=== PATIENT | female | born 1955 | race Hispanic/Latino ===

== ENCOUNTER → 2017-09-02 | Day surgery (SDC) | payer OTHER ==
[2017-08-31 10:07] LABS: ANION GAP 16.2 mmol/L (8-16); BLOOD UREA NITROGEN 17 mg/dL (7-26); BUN/CREATININE RATIO 20 (6-25); CALCIUM 9.8 mg/dL (8.4-10.2); CARBON DIOXIDE 25 mmol/L (22-29); CHLORIDE 101 mmol/L (98-107); CREATININE, SERUM 0.85 mg/dL (0.57-1.11); EST GLOMERULAR FILTRATION RATE > 60 ML/MIN (60-); GLUCOSE 153 mg/dL (74-118); POTASSIUM 4.2 mmol/L (3.5-5.1); SODIUM 138 mmol/L (136-145)
[~2017-09-02] MED LIST: ACETAMINOPHEN325 M1 PO; BUPIVACAINE 0.5%/EPI 30 ML SDV INJ ONE; CALCIUM600 M1; CEFAZOLIN SOD 2 GM/D5W 50ML 50 ML IV ONE; CRESTOR10 MG PO; DEXAMETHASONE SOD PHOS INJ 4 MG/ML VIAL ONE; FENTANYL CITRATE/PF 100MCG/2 ML INJ ONE; INVOKANA PO; JANUVIA100 MG PO; LIDOCAINE HCL 2% LOCAL INJ 5 ML SDV VIAL INJ ONE; MIDAZOLAM HCL 2 MG/2 ML VIAL ONE; ONDANSETRON HCL INJ 2 MG/ML VIAL ONE; PANTOPRAZOLE SO40 MG PO; PROPOFOL IV EMULSION 10 MG/ML 20 ML VIAL ONE; SEVOFLURANE INHAL SOLN 250 ML PEN BTL ONE; TYLENOL COLD &1 EACH PO; Z BIOTIN PO; Z.0.LIPITOR10 MG PO; Z.0.MELOXICAM15 MG PO; Z.0.MULTIVITAMINS1 E; Z.0.SERTRALINE HCL25 PO; Z.0.VITAMIN D3 1,01 PO; Z.2.METFORMIN HCL500 PO
--- OUTSIDE RECORDS SUMMARY | 2017-09-02 07:05 | XMS REPORT | Clinical Summary ---
Author Author [facility] Organization [facility] Address Unknown Phone Unavailable Care Team Providers Care Lamination Builder Name Role Phone Asked, Pcp PCP Unavailable Allergies Active Allergy Reactions Severity Noted Date Comments Codeine GI Intolerance 01/20/2017 nausea Current Medications Prescription Sig. Disp. Refills Start End Date Status Date INVOKANA 100 mg tablet Apply 100 mg to the mouth 01/06/20 Active tablet or throat daily. 17 MINIVELLE 0.075 mg/[address] 0.075 mg on the 01/01/20 Active skin once a week. 17 fluticasone (FLONASE) 50 50 sprays by Each Nare 12/09/19 Active mcg/actuation nasal spray route daily. 17 metFORMIN XR Take 500 mg by mouth 2 12/13/19 Active (GLUCOPHAGE-XR) 500 mg 24 (two) times a day. 17 hr tablet pantoprazole (PROTONIX) Take 40 mg by mouth 12/28/19 Active 40 MG EC tablet daily. 17 rosuvastatin (CRESTOR) 10 Take 10 mg by mouth 11/18/19 Active MG tablet nightly. 17 sertraline (ZOLOFT) 50 MG Take 12.5 mg by mouth 12/08/19 Active tablet nightly. 17 JANUVIA 100 mg tablet Take 100 mg by mouth 01/04/20 Active daily. 17 sucralfate (CARAFATE) 1 Take 1 g by mouth 2 (two) 12/09/19 Active gram tablet times a day. 17 INCRUSE ELLIPTA 62.5 62.5 mcg into each 12/28/19 Active mcg/actuation blister nostril daily. 17 with device Active Problems Not on file Encounters Date Type Specialty Care Team Description 01/20/2017 Lab Lab Srinath Grey MD 01/20/2017 Hospital Pulmonology Srinath Grey MD Encounter 01/20/2017 Procedure Pass Pulmonology 01/20/2017 Surgery Pulmonology Srinath Grey MD BRONCHOSCOPY WITH BAL after 09/01/2016 Social History Tobacco Use Types Packs/Day Years Used Date Never Smoker Alcohol Use Drinks/Week oz/Week Comments Yes ocasionally Sex Assigned at Date Recorded Not on file Last Filed Vital Signs Vital Sign Reading Time Taken Blood Pressure 131/65 01/20/2017 10:00 AM CDT Pulse 64 01/20/2017 10:00 AM CDT Temperature 36.1 C (97 F) 01/20/2017 9:08 AM CDT Respiratory Rate 16 01/20/2017 9:08 AM CDT Oxygen Saturation 99% 01/20/2017 10:00 AM CDT Inhaled Oxygen - - Concentration Weight 82.4 kg (181 lb 9.6 oz) 01/20/2017 7:32 AM CDT Height 162.6 cm (5' 4") 01/20/2017 7:32 AM CDT Body Mass Index 31.17 01/20/2017 7:32 AM CDT Plan of Treatment Health Maintenance Due Date Last Done Comments PAP SMEAR 10/03/1976 COLONOSCOPY 10/03/2005 MAMMOGRAM 10/03/2005 ZOSTER VACCINE 2015 INFLUENZA VACCINE 01/13/2017 Procedures Procedure Name Priority Date/Time Associated Diagnosis Comments BRONCHOSCOPY WITH BAL 01/20/2017 Cough 8:00 AM CDT after 09/01/2016 Results * Cytology (non-gynecological) request (01/20/2017 11:23 AM) Component Value Ref Range Cytology See link below for PDF Lab Report (non-gynecological) report Specimen Performing Laboratory [facility] DEPARTMENT OF PATHOLOGY AND GENOMIC MEDICINE [address] [place] [id number] * BAL cell count and differential (01/20/2017 10:49 AM) Component Value Ref Range BAL specimen source RML BAL BAL cell count 0.005 m/mL Comment: Normal ranges: Nonsmokers: 0.007 - 0.363 Smokers: 0 - 1.31 BAL PAMS SEE COMMENT % Comment: Normal ranges: Nonsmokers: 65 - 100 Smokers: 81 - 100 Footnote--------- Unable to perform manual differential. Due to low cell count. Specimen Performing Laboratory Fluid [facility] DEPARTMENT OF PATHOLOGY AND GENOMIC MEDICINE [address] [place] [id number] * Respiratory culture (01/20/2017 8:46 AM) Only the most recent of 2 results within the time period is included. Component Value Ref Range Respiratory culture Normal oral jessica isolated. isolate Comment: Specimen Information Specimen Source: Bronchial Washing Specimen Site: RML (Right Middle Lobe) Specimen Performing Laboratory Bronchial washing - L [facility] DEPARTMENT OF PATHOLOGY AND GENOMIC MEDICINE (right middle lobe) [address] [place] [id number] * Fungus smear (01/20/2017 8:46 AM) Component Value Ref Range Fungus smear No fungi observed. Comment: Specimen Information Specimen Source: Bronchial alveolar lavage Specimen Site: RML (right middle lobe) Specimen Performing Laboratory Bronchial alveolar lavage [facility] DEPARTMENT OF PATHOLOGY AND [facility] - L (right middle lobe) [address] [place] [phone] * Respiratory pathogen panel (01/20/2017 8:46 AM) Component Value Ref Range Respiratory pathogen Negative for all pathogens tested: panel Negative for Adenovirus Negative for Coronavirus HKU1 Negative for Coronavirus NL63 Negative for Coronavirus 229E Negative for Coronavirus OC43 Negative for Human Metapneumovirus Negative for Rhinovirus/Enterovirus Negative for Influenza A Negative for Influenza A/H1 Negative for Influenza A/H3 Negative for Influenza A/H1-2009 Negative for Influenza B Negative for Parainfluenza Virus 1 Negative for Parainfluenza Virus 2 Negative for Parainfluenza Virus 3 Negative for Parainfluenza Virus 4 Negative for Respiratory Syncytial Virus Negative for Bordetella pertussis Negative for Chlamydophila pneumoniae Negative for Mycoplasma pneumoniae This real-time PCR assay detects the presence of nucleic acids (RNA or DNA) for the respiratory pathogens listed. A result of "Not-detected" does not exclude the possibility of the presence of one or more pathogens at concentrations less than the detectable limits of the assay. Comment: Specimen Information Specimen Source: Bronchial alveolar lavage Specimen Site: RML (right middle lobe) Specimen Performing Laboratory Bronchial alveolar lavage [facility] DEPARTMENT OF PATHOLOGY AND GENOMIC MEDICINE - L (right middle lobe) [address] [place] [id number] * AFB culture (01/20/2017 8:46 AM) Component Value Ref Range AFB culture isolate No growth after 6 weeks of incubation. Comment: Specimen Information Specimen Source: Bronchial alveolar lavage Specimen Site: RML (right middle lobe) Specimen Performing Laboratory Bronchial alveolar lavage [facility] DEPARTMENT OF PATHOLOGY AND GENOMIC MEDICINE - L (right middle lobe) [address] [place] [address] * Gram stain (01/20/2017 8:46 AM) Only the most recent of 2 results within the time period is included. Component Value Ref Range Gram stain isolate Many WBC's Few Gram positive cocci in pairs Comment: Specimen Information Specimen Source: Bronchial Washing Specimen Site: RML (Right Middle Lobe) Specimen Performing Laboratory Bronchial washing - L [facility] DEPARTMENT OF PATHOLOGY AND GENOMIC MEDICINE (right middle lobe) [address] [place] [address] * AFB stain (01/20/2017 8:46 AM) Component Value Ref Range AFB stain No acid fast bacilli (AFB) seen. Comment: Specimen Information Specimen Source: Bronchial alveolar lavage Specimen Site: RML (right middle lobe) Specimen Performing Laboratory Bronchial alveolar lavage [facility] DEPARTMENT OF PATHOLOGY AND GENOMIC MEDICINE - L (right middle lobe) [address] [place] [address] * Fungus culture (01/20/2017 8:46 AM) Component Value Ref Range Fungus culture isolate No growth after 4 weeks of incubation. Comment: Specimen Information Specimen Source: Bronchial alveolar lavage Specimen Site: RML (right middle lobe) Specimen Performing Laboratory Bronchial alveolar lavage [facility] DEPARTMENT OF PATHOLOGY AND GENOMIC MEDICINE - L (right middle lobe) [address] [place] [address] * POC glucose (01/20/2017 7:34 AM) Component Value Ref Range POC glucose 124 (H) 65 - 99 mg/dL Comment: [facility] Notified RN Meter ID: [id number] Motor Vehicle Inspector: Jalen Kierra [place] Specimen Performing Laboratory [facility] DEPARTMENT OF PATHOLOGY AND GENOMIC MEDICINE [address] [place] [address] after 09/01/2016 Insurance Payer Benefit Subscriber ID Type Phone Address Plan / Group [employer] xxxxxxxxxxx HMO HMO/POS Home:
--- OUTSIDE RECORDS SUMMARY | 2017-09-02 07:05 | XMS REPORT ---
Author Author [facility] Address Unknown Phone Unavailable Care Team Providers Care Mill Set Up Name Role Phone Unavailable Unavailable Problems This patient has no known problems. Allergies, Adverse Reactions, Alerts This patient has no known allergies or adverse reactions. Medications This patient has no known medications. Results Test Description Test Time Test Comments Text Results Atomic Results Result Comments DG MAMMO SCREENING Addendum created at 05/22/2017 11:11:03 AM:The patient s prior study from 04/09/2016 is now available for comparison. The nodules in the bilateral breasts are stable. There has been no significant interval change in either breast.No mammographic evidence of malignancy. Routine annual screening mammogram in 1 year is recommended.BIRADS 2 - Benign.Addendum by: Tequila Christianson [facility]: This is a routine annual screening mammogram. The patient has no complaints.MODALITY: Siemens Inspiration Full Field Digital MammographyTECHNIQUE: Digital acquisition of the breasts is performed on the ACR accredited Full Field Digital Mammography Unit. Computer Assisted Detection (CAD) is then accomplished using [employer]. Imaging of the bilateral breasts is performed.FINDINGS:COMPARISON STUDY: NoneThe breasts are predominantly fatty.There is a nodule in the right breast 12 o clock. There is a nodule in the left breast lower inner quadrant anterior depth.IMPRESSION:Nodules in the bilateral breasts. RECOMMENDATION: Comparison with prior studies is recommended. If prior studies are unobtainable , additional mammographic images and ultrasound the bilateral breasts would then be recommended for further evaluation.Category: BIRADS 0 - Incomplete. Needs additional imaging for evaluation. For internal use only BIRAD:B0
--- NOTE | 2017-09-02 09:05 | Operative Report ---
DATE OF PROCEDURE: September 02, 2017 PREOPERATIVE DIAGNOSES 1. Right knee medial meniscus tear. 2. Right knee degenerative joint disease of the knee. POSTOPERATIVE DIAGNOSES 1. Right knee medial meniscus tear. 2. Right knee degenerative joint disease of the knee. OPERATIONS/PROCEDURES PERFORMED 1. The patient underwent a right knee examination under anesthesia. 2. Right knee arthroscopy. 3. Right knee partial medial meniscectomy. 4. Right knee chondroplasty of th3e patella, trochlea, medial femoral condyle, medial tibial plateau, and the lateral tibial plateau. GRADE TEACHER: None. ANESTHESIA: General endotracheal intubation anesthesia. IV FLUIDS: Per the anesthesia record. BRIEF DESCRIPTION OF THE PATIENT'S OPERATIVE PROCEDURE: Ms. Garcia was taken to the operating room and placed in the supine position on the operating table. Following induction of general anesthesia, as well as endotracheal intubation, the patient's right lower extremity was examined under anesthesia. She was found to have mild effusion within the knee joint, but otherwise ligamentously stable knee. The patient's lower extremity was prepped and draped in the standard surgical fashion. A 2-portal technique was used to provide this patient arthroscopic evaluation of the knee joint. Examination of the suprapatellar pouch, medial and lateral gutters found no evidence of loose bodies. There was, however, evidence of chondromalacia of the patellar and trochlear surfaces. The scope was advanced in the medial compartment. Examination of the medial compartment demonstrated a torn posterior horn of the medial meniscus. The tear was located in the undersurface of this portion of the medial meniscus. There was also chondromalacia of the articular surfaces. A combination of biting forceps and motorized shaver were used to resect the torn portion of the meniscus. Chondroplasties of the medial femoral condyle and medial tibial plateau were performed at this time. Scope was advanced in the intracondylar notch, and the anterior cruciate ligament was identified and found to be intact. Scope was advanced in the lateral compartment, and there was chondromalacia of the lateral tibial plateau. A chondroplasty of this surface was performed. The scope was then placed in the suprapatellar pouch, and chondroplasties of the patella and trochlea were performed. The knee was deflated of its sterile normal saline. Each of the portal sites were closed using 4-0 nylon suture. Portal sites as well as the knee itself were injected with 0.5% Marcaine with epinephrine. Sterile dressings were applied. The patient was awakened and taken to the postanesthesia care unit in stable condition. Job#: [id number]
== END | disposition home or self-care (01) ==
LOC: OR 07:03
PROVIDERS: ATTEND Specialist
DX: S83.221A Peripheral tear of medial meniscus, current injury, right knee, initial encounter (principal); S83.411A Sprain of medial collateral ligament of right knee, initial encounter; M17.11 Unilateral primary osteoarthritis, right knee; M22.41 Chondromalacia patellae, right knee; E11.9 Type 2 diabetes mellitus without complications; K21.9 Gastro-esophageal reflux disease without esophagitis; E78.5 Hyperlipidemia, unspecified; F41.9 Anxiety disorder, unspecified; X58.XXXA Exposure to other specified factors, initial encounter; Z01.810 Encounter for preprocedural cardiovascular examination; Z01.812 Encounter for preprocedural laboratory examination; Z68.30 Body mass index [BMI] 30.0-30.9, adult
CPT/HCPCS: 29881; 36415 ×2; 80048; 82948; 93005; J1100; J2001; J2250; J2405